=== PATIENT | female | born 1975 | race African-American/Black ===

== ENCOUNTER 2024-09-04 00:35 | Emergency (ER) | payer MEDICAID ==
[~2024-09-04] VITALS: Ht 162.6 cm; Wt 77.3 kg
[2024-09-04 00:55] VITALS: PULSE 95; RESP 22; O2SAT 97
[2024-09-04 01:30] VITALS: TEMP 98.4
[2024-09-04] MEDS: ALBUTEROL SULF 2.5 MG/0.5ML(0.5%) NEB SOLN NEB ONE ×2 (01:35→03:39)
[2024-09-04] MEDS: IPRATROPIUM BROM 0.5 MG/2.5ML INH SOL NEB ONE (01:36)
[2024-09-04 03:31] VITALS: BP 154/80; PULSE 94
[2024-09-04] MEDS ORDERED: METH4PAK PO (03:33)
[2024-09-04] MEDS ORDERED: ALB5IS NEB (03:33)
[2024-09-04 03:40] VITALS: RESP 20; O2SAT 93
== END 2024-09-04 03:26 | disposition home or self-care (01) ==
LOC: EDBD 00:35 → ER 00:35
DX: J45.901 Unspecified asthma with (acute) exacerbation (principal); I10 Essential (primary) hypertension; Z90.710 Acquired absence of both cervix and uterus
CPT/HCPCS: 71046; 93005; 94640